=== PATIENT | female | born 1945 | race Caucasian/White ===

== ENCOUNTER → 2022-07-16 | Outpatient (REF) | payer MEDICARE ==
[2022-07-16 17:30] LABS: IRON (FE) 170 UG/DL (50-170)
[2022-07-16 17:45] LABS: HEMATOCRIT 40.9 % (36.0-47.0); HEMOGLOBIN 12.6 g/dl (12.0-15.5); MEAN CORPUSCULAR HEMOGLOBIN 28.6 pg (27.0-33.0); MEAN CORPUSCULAR HGB CONC 30.8 g/dl (32.0-36.5); MEAN CORPUSCULAR VOLUME 92.7 fl (80.0-96.0); PLATELET COUNT, AUTOMATED 515 10^3/uL (150-450); RED BLOOD COUNT 4.41 10^6/uL (4.00-5.40); WHITE BLOOD COUNT 10.8 10^3/uL (4.0-10.0)
[2022-07-16 18:02] LABS: ALBUMIN 2.9 G/DL (3.2-5.2); ALKALINE PHOSPHATASE 119 U/L (46-116); ALT/SGPT 17 U/L (7.0-40); AST/SGOT 25 U/L (<34); BILIRUBIN,TOTAL 0.6 MG/DL (0.3-1.2); BLOOD UREA NITROGEN 19 MG/DL (9-23); CALCIUM LEVEL 10.2 MG/DL (8.3-10.6); CARBON DIOXIDE LEVEL 23 MMOL/L (20-31); CHLORIDE LEVEL 107 MMOL/L (98-107); CHOLESTEROL LEVEL 180 MG/DL (<200); CHOLESTEROL RISK RATIO 4.89 (<5); CREATININE FOR GFR 0.65 MG/DL (0.55-1.30); GLOMERULAR FILTRATION RATE > 60.0 (>39); GLUCOSE, FASTING 73 MG/DL (74-106); HDL CHOLESTEROL 36.8 MG/DL (>40); LDL CHOLESTEROL 95.8 MG/DL (<100); NON-HDL-C 143.2 MG/DL; PERCENT SATURATION 18.9 % (13.2-45.0); POTASSIUM SERUM 4.8 MMOL/L (3.5-5.1); SODIUM LEVEL 140 MMOL/L (136-145); TOTAL IRON BINDING CAPACITY 317 UG/DL (250-425); TOTAL PROTEIN 6.7 G/DL (5.7-8.2); TRIGLYCERIDES LEVEL 237 MG/DL (<150)
== END ==
LOC: M LAB REF 16:15
PROVIDERS: ATTEND Physician Assistant
DX: Z00.8 Encounter for other general examination (principal); D50.9 Iron deficiency anemia, unspecified; E78.5 Hyperlipidemia, unspecified

== ENCOUNTER 2022-10-18 10:39 | Inpatient (IN) | payer MEDICARE ==
[~2022-10-18] VITALS: Ht 157.5 cm; Wt 71.1 kg
[2022-10-18] MEDS ORDERED: FURO20TA2 PO (10:55)
[2022-10-18] MEDS ORDERED: ASPI-226 PO (10:55)
[2022-10-18] MEDS ORDERED: MAGN400T35 PO (10:55)
[2022-10-18] MEDS ORDERED: POTA10CA60 (10:55)
[2022-10-18] MEDS ORDERED: ONDANSETRON 4MG 2ML VIAL IV ONE (12:55)
[2022-10-18] MEDS ORDERED: MORPHINE 4 MG/ML 1ML VIAL IV ONE ×2 (12:55→15:45)
[2022-10-18 13:20] LABS: BASO # 0.1 10^3/uL (0.0-0.2); BASO % 0.6 % (0.0-1.0); EOS # 0.3 10^3/uL (0.0-0.5); HEMATOCRIT 45.2 % (36.0-47.0); HEMOGLOBIN 14.1 g/dl (12.0-15.5); LYMPH # 4.9 10^3/uL (1.5-5.0); LYMPH % 34.2 % (24.0-44.0); MEAN CORPUSCULAR HEMOGLOBIN 28.3 pg (27.0-33.0); MEAN CORPUSCULAR HGB CONC 31.2 g/dl (32.0-36.5); MEAN CORPUSCULAR VOLUME 90.6 fl (80.0-96.0); MONO # 1.4 10^3/uL (0.0-0.8); MONO % 9.4 % (2.0-8.0); NEUTROPHILS # 7.7 10^3/uL (1.5-8.5); NEUTROPHILS % 53.5 % (36.0-66.0); PLATELET COUNT, AUTOMATED 447 10^3/uL (150-450); RED BLOOD COUNT 4.99 10^6/uL (4.00-5.40); WHITE BLOOD COUNT 14.4 10^3/uL (4.0-10.0)
[2022-10-18 13:42] LABS: ALBUMIN 3.2 G/DL (3.2-5.2); ALKALINE PHOSPHATASE 176 U/L (46-116); ALT/SGPT 64 U/L (7.0-40); AST/SGOT 39 U/L (<34); BILIRUBIN,DIRECT 0.2 MG/DL (<0.4); BILIRUBIN,TOTAL 0.7 MG/DL (0.3-1.2); BLOOD UREA NITROGEN 19 MG/DL (9-23); CALCIUM LEVEL 9.5 MG/DL (8.3-10.6); CARBON DIOXIDE LEVEL 28 MMOL/L (20-31); CHLORIDE LEVEL 106 MMOL/L (98-107); CREATININE FOR GFR 0.75 MG/DL (0.55-1.30); GLOMERULAR FILTRATION RATE > 60.0 (>39); GLUCOSE, FASTING 89 MG/DL (74-106); POTASSIUM SERUM 4.3 MMOL/L (3.5-5.1); SODIUM LEVEL 140 MMOL/L (136-145); TOTAL PROTEIN 7.1 G/DL (5.7-8.2)
[2022-10-18 19:38] LABS: RSV AMPLIFICATION NEGATIVE (NEGATIVE)
[2022-10-18] MEDS ORDERED: ACETAMINOPHEN TAB 650MG DOSE (2X325MG) PO PRN (20:05)
[2022-10-18] MEDS ORDERED: PERCOCET 5MG/325MG TAB PO PRN (20:05)
[2022-10-18] MEDS ORDERED: LIDOCAINE 5% (LIDODERM) PATCH TD ONE (20:30)
[2022-10-18] MEDS ORDERED: tiZANidine 4 MG TAB PO SCH (21:00)
[2022-10-18] MEDS ORDERED: CelecoXIB (CeleBREX) 100 MG CAP PO SCH (21:00)
[2022-10-18] MEDS ORDERED: ALLE180T33 PO (21:03)
[2022-10-18] MEDS ORDERED: ACET-683 PO (21:03)
[2022-10-18] MEDS ORDERED: HOME MED LIST COMPLETE! XX SCH (21:05)
[2022-10-18] MEDS ORDERED: FEXOFENADINE 60MG TAB PO PRN (21:35)
[2022-10-18 21:45] VITALS: BP 119/62; TEMP 97.3; O2SAT 98
[2022-10-18] MEDS ORDERED: PILL CUTTER 1 EACH XX PRN (22:00)
[2022-10-18] MEDS: MAGNESIUM OXIDE 400MG TAB (MAG-OX) PO SCH (23:15)
[2022-10-18] MEDS: ASPIRIN 81MG ENTERIC TABLET PO SCH (23:16)
[2022-10-19 06:39] VITALS: BP 107/57; TEMP 97.4; O2SAT 98
[2022-10-19 06:53] LABS: HEMATOCRIT 43.1 % (36.0-47.0); MEAN CORPUSCULAR HEMOGLOBIN 27.4 pg (27.0-33.0); MEAN CORPUSCULAR HGB CONC 30.2 g/dl (32.0-36.5); MEAN CORPUSCULAR VOLUME 90.9 fl (80.0-96.0); PLATELET COUNT, AUTOMATED 458 10^3/uL (150-450); RED BLOOD COUNT 4.74 10^6/uL (4.00-5.40); WHITE BLOOD COUNT 9.1 10^3/uL (4.0-10.0)
[2022-10-19 07:12] LABS: BLOOD UREA NITROGEN 20 MG/DL (9-23); CALCIUM LEVEL 10.2 MG/DL (8.3-10.6); CARBON DIOXIDE LEVEL 29 MMOL/L (20-31); CHLORIDE LEVEL 103 MMOL/L (98-107); CREATININE FOR GFR 0.76 MG/DL (0.55-1.30); GLOMERULAR FILTRATION RATE > 60.0 (>39); GLUCOSE, FASTING 109 MG/DL (74-106); MAGNESIUM LEVEL 1.8 MG/DL (1.8-2.4); POTASSIUM SERUM 4.2 MMOL/L (3.5-5.1); SODIUM LEVEL 139 MMOL/L (136-145)
[2022-10-19] MEDS ORDERED: MORPHINE 2 MG/ML 1ML VIAL IV ONE (08:15)
[2022-10-19] MEDS ORDERED: oxyCODONE 5MG TAB PO ONE ×2 (08:30→17:00)
[2022-10-19] MEDS ORDERED: traMADol 50 MG TAB PO ONE (08:30)
[2022-10-19] MEDS ORDERED: KETOROLAC 30 MG/ML 1ML VIAL IV ONE (08:30)
[2022-10-19] MEDS: LIDOCAINE 5% (LIDODERM) PATCH TD SCH (08:49)
[2022-10-19] MEDS: DICLOFENAC EPOLAMINE 1.3% PATCH TOP SCH ×2 (08:49→19:54)
[2022-10-19] MEDS: ENOXAPARIN 40MG/0.4ML SYRINGE (J1650 PER 10MG) SC SCH (08:51)
[2022-10-19] MEDS: PREGABALIN 25 MG CAP (LYRICA) PO SCH ×2 (08:52→19:55)
[2022-10-19] MEDS: MAGNESIUM OXIDE 400MG TAB (MAG-OX) PO SCH ×2 (08:52→19:54)
[2022-10-19] MEDS: FUROSEMIDE 20 MG TAB PO SCH (08:52)
[2022-10-19] MEDS: ACETAMINOPHEN TAB 650MG DOSE (2X325MG) PO SCH ×4 (08:55→19:55)
[2022-10-19 10:10] LABS: HEPATITIS B SURFACE ANTIGEN NEGATIVE (NEGATIVE)
[2022-10-19 10:32] LABS: HEPATITIS B CORE ANTIBODY IGM NEGATIVE (NEGATIVE)
[2022-10-19 10:39] LABS: ALBUMIN 2.8 G/DL (3.2-5.2); ALKALINE PHOSPHATASE 277 U/L (46-116); ALT/SGPT 116 U/L (7.0-40); AST/SGOT 143 U/L (<34); BILIRUBIN,DIRECT 0.2 MG/DL (<0.4); BILIRUBIN,TOTAL 0.6 MG/DL (0.3-1.2); TOTAL PROTEIN 6.5 G/DL (5.7-8.2)
[2022-10-19 14:00] VITALS: BP 108/53; TEMP 97.3; O2SAT 96
[2022-10-19] MEDS ORDERED: traMADol 50 MG TAB PO SCH ×2 (14:00→21:00)
[2022-10-19] MEDS: ASPIRIN 81MG ENTERIC TABLET PO SCH (19:55)
[2022-10-19 20:00] VITALS: BP 97/54; TEMP 98.2; O2SAT 92
[2022-10-20] MEDS ORDERED: oxyCODONE 5MG TAB PO ONE (05:00)
[2022-10-20 05:56] VITALS: BP 100/55; TEMP 98.1; O2SAT 93
[2022-10-20 07:15] LABS: HEMATOCRIT 41.6 % (36.0-47.0); HEMOGLOBIN 12.9 g/dl (12.0-15.5); MEAN CORPUSCULAR HEMOGLOBIN 28.2 pg (27.0-33.0); PLATELET COUNT, AUTOMATED 462 10^3/uL (150-450); RED BLOOD COUNT 4.57 10^6/uL (4.00-5.40); WHITE BLOOD COUNT 10.6 10^3/uL (4.0-10.0)
[2022-10-20] MEDS ORDERED: MOM 30ML SUSPENSION UDC PO PRN (07:25)
[2022-10-20] MEDS ORDERED: SENOKOT S TAB PO PRN (07:25)
[2022-10-20 07:40] LABS: ALBUMIN 2.7 G/DL (3.2-5.2); ALKALINE PHOSPHATASE 230 U/L (46-116); ALT/SGPT 76 U/L (7.0-40); AST/SGOT 51 U/L (<34); BILIRUBIN,TOTAL 0.4 MG/DL (0.3-1.2); BLOOD UREA NITROGEN 29 MG/DL (9-23); CALCIUM LEVEL 9.1 MG/DL (8.3-10.6); CARBON DIOXIDE LEVEL 26 MMOL/L (20-31); CHLORIDE LEVEL 104 MMOL/L (98-107); CREATININE FOR GFR 0.85 MG/DL (0.55-1.30); GLOMERULAR FILTRATION RATE > 60.0 (>39); GLUCOSE, FASTING 86 MG/DL (74-106); POTASSIUM SERUM 4.2 MMOL/L (3.5-5.1); SODIUM LEVEL 139 MMOL/L (136-145); TOTAL PROTEIN 6.4 G/DL (5.7-8.2)
[2022-10-20 07:53] LABS: HEPATITIS B SURFACE ANTIGEN NEGATIVE (NEGATIVE)
[2022-10-20 08:15] LABS: HEPATITIS B CORE ANTIBODY IGM NEGATIVE (NEGATIVE); HEPATITIS C VIRUS ABY INDEX 0.11 INDEX (<0.8)
[2022-10-20] MEDS: ENOXAPARIN 40MG/0.4ML SYRINGE (J1650 PER 10MG) SC SCH (10:14)
[2022-10-20] MEDS: DICLOFENAC EPOLAMINE 1.3% PATCH TOP SCH ×2 (10:15→21:01)
[2022-10-20] MEDS: ACETAMINOPHEN TAB 650MG DOSE (2X325MG) PO SCH ×4 (10:16→21:02)
[2022-10-20] MEDS: LIDOCAINE 5% (LIDODERM) PATCH TD SCH (10:16)
[2022-10-20] MEDS: PREGABALIN 25 MG CAP (LYRICA) PO SCH ×2 (10:17→21:02)
[2022-10-20] MEDS: MAGNESIUM OXIDE 400MG TAB (MAG-OX) PO SCH ×2 (10:17→21:02)
[2022-10-20] MEDS: FUROSEMIDE 20 MG TAB PO SCH (10:18)
[2022-10-20 10:19] VITALS: BP 104/56
[2022-10-20] MEDS: oxyCODONE 5MG TAB PO SCH ×2 (12:25→17:52)
[2022-10-20 13:16] LABS: APPEARANCE, URINE HAZY (CLEAR); BACTERIA, URINE AUTO 3+ (NEGATIVE); BILIRUBIN, URINE AUTO NEGATIVE (NEGATIVE); BLOOD, URINE BLOOD NEGATIVE (NEGATIVE); CALCIUM OXALATE CRYSTALS SMALL; COLOR, URINE YELLOW (YELLOW); GLUCOSE, URINE (UA) AUTO NEGATIVE (NEGATIVE); KETONE, URINE AUTO NEGATIVE (NEGATIVE); LEUKOCYTE ESTERASE, URINE AUTO 1+ (NEGATIVE); MUCUS, URINE SMALL (NEGATIVE); NITRITE, URINE AUTO POSITIVE (NEGATIVE); PROTEIN, URINE AUTO NEGATIVE (NEGATIVE); RBC, URINE AUTO 3 /HPF (0-3); SPECIFIC GRAVITY URINE AUTO 1.028 (1.002-1.035); SQUAMOUS EPITHELIAL CELL UR AU 3 /HPF (0-6); UROBILINOGEN, URINE AUTO 0.2 mg/dL (0.0-2.0); WBC, URINE AUTO 15 /HPF (0-3)
[2022-10-20 13:56] VITALS: BP 105/56; TEMP 97.7; O2SAT 92
[2022-10-20] MEDS ORDERED: LIDO3CRE14 TOP (16:33)
[2022-10-20] MEDS ORDERED: SENN-52 PO (16:33)
[2022-10-20] MEDS ORDERED: PREG25CA PO (16:33)
[2022-10-20] MEDS ORDERED: DICL1PAT6 TOP (16:33)
[2022-10-20] MEDS ORDERED: OXYC-517 PO (16:33)
[2022-10-20 19:55] VITALS: BP 105/56; TEMP 97.9; O2SAT 92
[2022-10-20] MEDS: ASPIRIN 81MG ENTERIC TABLET PO SCH (21:02)
[2022-10-21] MEDS: oxyCODONE 5MG TAB PO SCH ×3 (05:21→12:00)
[2022-10-21 05:44] VITALS: BP 118/60; TEMP 97.9; O2SAT 91
[2022-10-21 06:52] LABS: ALBUMIN 2.8 G/DL (3.2-5.2); ALKALINE PHOSPHATASE 202 U/L (46-116); ALT/SGPT 51 U/L (7.0-40); AST/SGOT 26 U/L (<34); BILIRUBIN,TOTAL 0.3 MG/DL (0.3-1.2); BLOOD UREA NITROGEN 26 MG/DL (9-23); CALCIUM LEVEL 9.6 MG/DL (8.3-10.6); CARBON DIOXIDE LEVEL 24 MMOL/L (20-31); CHLORIDE LEVEL 108 MMOL/L (98-107); CREATININE FOR GFR 0.81 MG/DL (0.55-1.30); GLOMERULAR FILTRATION RATE > 60.0 (>39); GLUCOSE, FASTING 82 MG/DL (74-106); POTASSIUM SERUM 4.3 MMOL/L (3.5-5.1); SODIUM LEVEL 136 MMOL/L (136-145); TOTAL PROTEIN 6.4 G/DL (5.7-8.2)
[2022-10-21] MEDS: FUROSEMIDE 20 MG TAB PO SCH (09:00)
[2022-10-21] MEDS: ACETAMINOPHEN TAB 650MG DOSE (2X325MG) PO SCH ×2 (09:49→13:11)
[2022-10-21] MEDS: MAGNESIUM OXIDE 400MG TAB (MAG-OX) PO SCH (09:50)
[2022-10-21] MEDS: DICLOFENAC EPOLAMINE 1.3% PATCH TOP SCH (09:50)
[2022-10-21] MEDS: ENOXAPARIN 40MG/0.4ML SYRINGE (J1650 PER 10MG) SC SCH (09:50)
[2022-10-21] MEDS: LIDOCAINE 5% (LIDODERM) PATCH TD SCH (09:50)
[2022-10-21] MEDS: PREGABALIN 25 MG CAP (LYRICA) PO SCH (09:50)
[2022-10-22 13:10] LABS: ANTINUCLEAR ANTIBODIES DIRECT Negative (Negative)
[2022-10-22 15:11] LABS: ANTINUCLEAR ANTIBODIES DIRECT Negative (Negative)
== END 2022-10-21 16:30 | disposition home health service (06) | DRG 552 ==
LOC: M ED 10:39 → EDBD 10:39 → M ED INP 20:02 → M MS5PR 21:45
PROVIDERS: ADMIT Internal Medicine; ATTEND General Practice
DX: M48.061 Spinal stenosis, lumbar region without neurogenic claudication (principal); I50.32 Chronic diastolic (congestive) heart failure; J44.9 Chronic obstructive pulmonary disease, unspecified; I11.0 Hypertensive heart disease with heart failure; M48.07 Spinal stenosis, lumbosacral region; I48.91 Unspecified atrial fibrillation; M47.812 Spondylosis without myelopathy or radiculopathy, cervical region; G47.33 Obstructive sleep apnea (adult) (pediatric); D64.9 Anemia, unspecified; R26.9 Unspecified abnormalities of gait and mobility; R53.1 Weakness; R94.5 Abnormal results of liver function studies; R53.81 Other malaise; D72.829 Elevated white blood cell count, unspecified; J30.2 Other seasonal allergic rhinitis; Z79.899 Other long term (current) drug therapy; Z88.0 Allergy status to penicillin; Z88.2 Allergy status to sulfonamides; Z88.8 Allergy status to other drugs, medicaments and biological substances; Z79.82 Long term (current) use of aspirin; Z90.49 Acquired absence of other specified parts of digestive tract; Z85.038 Personal history of other malignant neoplasm of large intestine; Z98.41 Cataract extraction status, right eye; Z93.3 Colostomy status; Z98.42 Cataract extraction status, left eye; Z95.828 Presence of other vascular implants and grafts; Z96.651 Presence of right artificial knee joint

== ENCOUNTER 2022-12-15 20:02 | Emergency (ER) | payer MEDICARE ==
[~2022-12-15] VITALS: Ht 154.9 cm; Wt 72.7 kg
[~2022-12-15 20:02] MED LIST: ACET-683 PO; ALLE180T33 PO; ASPI-226 PO; DICL1PAT6 TOP; FURO20TA2 PO; LIDO3CRE14 TOP; MAGN400T35 PO; OXYC-517 PO; POTA10CA60; PREG25CA PO; SENN-52 PO
[2022-12-15] MEDS ORDERED: METHOCARBAMOL 1,000 MG/10 ML VIAL IV ONE (21:50)
[2022-12-15] MEDS ORDERED: KETOROLAC 30 MG/ML 1ML VIAL IV ONE (21:50)
[2022-12-15 22:43] VITALS: TEMP 98.5
[2022-12-15] MEDS ORDERED: PERCOCET 5MG/325MG TAB PO ONE (23:50)
[2022-12-16 01:02] VITALS: BP 117/55; O2SAT 94
[2022-12-16] MEDS ORDERED: PERC5TAB12 PO (01:26)
[2022-12-16] MEDS ORDERED: NAPR-837 PO (01:26)
[2022-12-16] MEDS ORDERED: METH-1165 PO (01:26)
[2022-12-16] MEDS ORDERED: OXYCODONE/APAP 5MG/325MG(HOME DOSE PACK) PO ONE (01:30)
== END 2022-12-16 02:00 | disposition home or self-care (01) ==
LOC: M ED 20:02
DX: S32.050A Wedge compression fracture of fifth lumbar vertebra, initial encounter for closed fracture (principal); M48.061 Spinal stenosis, lumbar region without neurogenic claudication; M51.36 Other intervertebral disc degeneration, lumbar region; Z86.79 Personal history of other diseases of the circulatory system; Z88.0 Allergy status to penicillin; Z88.1 Allergy status to other antibiotic agents; Z88.5 Allergy status to narcotic agent; Z88.8 Allergy status to other drugs, medicaments and biological substances; Z91.041 Radiographic dye allergy status; Z91.048 Other nonmedicinal substance allergy status; Z79.82 Long term (current) use of aspirin; Z79.811 Long term (current) use of aromatase inhibitors; Z79.899 Other long term (current) drug therapy
CPT/HCPCS: 72131; 96374; 96375; 99284; J1885; J2800

== ENCOUNTER 2023-01-01 09:48 | Emergency (ER) | payer MEDICARE ==
[~2023-01-01] VITALS: Ht 154.9 cm; Wt 72.7 kg
[~2023-01-01 09:48] MED LIST changes: +METH-1165 PO; +NAPR-837 PO; +PERC5TAB12 PO
[2023-01-01 11:29] LABS: BASO # 0.1 10^3/uL (0.0-0.2); BASO % 0.7 % (0.0-1.0); EOS # 0.2 10^3/uL (0.0-0.5); EOS % 2.2 % (0.0-3.0); HEMATOCRIT 45.8 % (36.0-47.0); HEMOGLOBIN 14.8 g/dl (12.0-15.5); LYMPH # 4.1 10^3/uL (1.5-5.0); LYMPH % 39.1 % (24.0-44.0); MEAN CORPUSCULAR HEMOGLOBIN 29.1 pg (27.0-33.0); MEAN CORPUSCULAR HGB CONC 32.3 g/dl (32.0-36.5); MEAN CORPUSCULAR VOLUME 90.2 fl (80.0-96.0); MONO % 9.8 % (2.0-8.0); NEUTROPHILS # 5.1 10^3/uL (1.5-8.5); NEUTROPHILS % 47.9 % (36.0-66.0); PLATELET COUNT, AUTOMATED 442 10^3/uL (150-450); RED BLOOD COUNT 5.08 10^6/uL (4.00-5.40); WHITE BLOOD COUNT 10.6 10^3/uL (4.0-10.0)
[2023-01-01 11:49] LABS: CK-MB VALUE MASS < 1.0 NG/ML (<3.6); LIPASE 23 U/L (12-53)
[2023-01-01 11:50] LABS: CPK CREATINE PHOSPHOKINASE 24 U/L (34-145); MB/CK RELATIVE INDEX 4.16 (< OR =4)
[2023-01-01 11:52] LABS: ALBUMIN 3.5 G/DL (3.2-5.2); ALKALINE PHOSPHATASE 174 U/L (46-116); ALT/SGPT 17 U/L (7.0-40); AST/SGOT 19 U/L (<34); BILIRUBIN,DIRECT 0.3 MG/DL (<0.4); BILIRUBIN,TOTAL 0.9 MG/DL (0.3-1.2); TOTAL PROTEIN 7.4 G/DL (5.7-8.2)
[2023-01-01 13:57] LABS: CK-MB VALUE MASS < 1.0 NG/ML (<3.6)
[2023-01-01 13:58] LABS: CPK CREATINE PHOSPHOKINASE 22 U/L (34-145); MB/CK RELATIVE INDEX 4.54 (< OR =4)
[2023-01-01] MEDS ORDERED: NITR1CAP11 PO (14:13)
[2023-01-01 14:31] VITALS: BP 132/63; TEMP 97.9; O2SAT 94
== END 2023-01-01 14:32 | disposition home or self-care (01) ==
LOC: M ED 09:48
DX: N30.00 Acute cystitis without hematuria (principal); K62.5 Hemorrhage of anus and rectum; I11.9 Hypertensive heart disease without heart failure; I48.91 Unspecified atrial fibrillation; I50.20 Unspecified systolic (congestive) heart failure; I25.10 Atherosclerotic heart disease of native coronary artery without angina pectoris; K21.9 Gastro-esophageal reflux disease without esophagitis; J44.9 Chronic obstructive pulmonary disease, unspecified; G47.33 Obstructive sleep apnea (adult) (pediatric); E78.5 Hyperlipidemia, unspecified; Z85.038 Personal history of other malignant neoplasm of large intestine; Z93.3 Colostomy status; Z91.041 Radiographic dye allergy status; Z88.0 Allergy status to penicillin; Z88.2 Allergy status to sulfonamides; Z88.1 Allergy status to other antibiotic agents; Z91.018 Allergy to other foods

== ENCOUNTER → 2023-02-04 | Outpatient (CLI) | payer MEDICARE ==
[~2023-02-04] MED LIST changes: +NITR1CAP11 PO
== END ==
LOC: M WHC 09:18
PROVIDERS: ATTEND Orthopaedic Surgery
DX: M80.08XA Age-related osteoporosis with current pathological fracture, vertebra(e), initial encounter for fracture (principal)

== ENCOUNTER → 2023-08-06 | Outpatient (CLI) | payer MEDICARE ==
[~2023-08-06] MED LIST changes: +ISOVUE-300 61% 100ML VIAL As Ordered ONE; +LIDOCAINE 1% MDV 20ML VIAL As Ordered ONE; +TRIAMCINOLONE ACETONIDE SUSP 40MG/ML 1ML VIAL As Ordered ONE
== END ==
LOC: M RAD 13:17
PROVIDERS: ATTEND Physician Assistant
DX: M16.11 Unilateral primary osteoarthritis, right hip (principal)
CPT/HCPCS: 20610; 77002; J3301; Q9967